=== PATIENT | female | born 1970 | race Two or more races ===

== ENCOUNTER 2017-02-05 14:56 | Emergency (ER) | payer SELFPAY ==
[2017-02-05 15:43] LABS: % IMMATURE GRANULYOCYTES 0.4 % (0.0-1.1); ABSOLUTE IMMATURE GRANULOCYTES 0.04 10^3/uL (0.00-0.10); ADD DIFF? NO; ADD MORPH? NO; ADD SCAN? NO; ATYPICAL LYMPHOCYTE FLAG 10 (0-99); FRAGMENT RBC FLAG 0 (0-99); HEMATOCRIT 43.5 % (38.0-47.0); HEMOGLOBIN 14.9 g/dL (12.6-16.3); LEFT SHIFT FLG 0 (0-99); LIPEMIA HEMOLYSIS FLAG 90 (0-99); MEAN CELL HEMOGLOBIN CONCENTR. 34.3 g/dL (32.4-36.7); MEAN CELL VOLUME 84.8 fL (81.5-99.8); PLATELET CLUMPS FLAG 0 (0-99); PLATELET COUNT 463 10^3/uL (150-400); RED BLOOD CELL COUNT 5.13 10^6/uL (4.18-5.33); RED CELL DISTRIBUTION WIDTH 12.4 % (11.5-15.2)
[2017-02-05 15:49] LABS: ANION GAP 18 mEq/L (8-16); CARBON DIOXIDE 21 mEq/l (22-31); CHLORIDE 100 mEq/L (97-110); CREATININE 0.7 mg/dL (0.6-1.0); GLOMERULAR FILTRATION RATE > 60; GLUCOSE 104 mg/dL (70-100); POTASSIUM 4.3 mEq/L (3.5-5.2); SODIUM 139 mEq/L (134-144)
--- NOTE | 2017-02-05 16:00 | EDPHY ---
H & P Time Seen by Provider: 02/05/17 15:43 HPI/ROS: CHIEF COMPLAINT: Right-sided abdominal pain HISTORY OF PRESENT ILLNESS: 46-year-old female presents with right-sided abdominal pain. Onset of epigastric burning and discomfort 2 weeks ago, similar to prior episodes of GERD. She took Mylanta with relief. She has been taking Nexium since then. However, she has developed a discomfort in the right side of her abdomen over the past week, which comes and goes. The discomfort is not clearly related to eating. Sometimes the pain is in the right upper quadrant and sometimes in the right lower quadrant. Rated 5/10 at its worst. No pain now. Eating normally. No fever, nausea, vomiting, diarrhea or constipation. REVIEW OF SYSTEMS: Constitutional: No fever, no chills Eyes: No visual changes ENT: No sore throat Respiratory: No cough, no shortness of breath Cardiac: No chest pain Genitourinary: No hematuria, no dysuria Musculoskeletal: No leg pain or swelling Skin: No rash Neurological: No headache [Psychiatric: No depression Past Medical/Surgical History: GERD Social History: No recent alcohol Smoking Status: Never smoked Physical Exam: General Appearance: Alert, pleasant Eyes: Pupils equal and round, no conjunctival pallor ENT, Mouth: Mucous membranes moist Neck: Normal inspection Respiratory: Lungs are clear to auscultation Cardiovascular: Regular rate and rhythm Gastrointestinal: Abdomen is soft and nontender Neurological: A&O, nonfocal, normal gait Skin: Warm and dry, no rash Extremities: Nontender, no pedal edema Psychiatric: Mood and affect normal Constitutional: Initial Vital Signs Temperature (C) 37.3 C 02/05/17 15:01 Heart Rate 105 H 02/05/17 15:01 Respiratory Rate 20 02/05/17 15:01 Blood Pressure 167/100 H 02/05/17 15:01 O2 Sat (%) 95 02/05/17 15:01 O2 Delivery Mode Room Air Allergies/Adverse Reactions: No Known Allergies Allergy (Unverified 02/05/17 15:00) Home Medications: Medication Instructions Recorded Nexium 02/05/17 Singulair 02/05/17 ZYRTEC 02/05/17 Medical Decision Making - Diagnostics Imaging Results: RUQ sono: fatty liver, o/w unremarkable Imaging: Discussed imaging studies w/ call out operator Radiologist ED Course/Re-evaluation: This pt presents with intermittent RUQ pain, possibly secondary to biliary colic /renal colic. No pain now and abd exam is normal. Will obtain labs/RUQ sono. Laboratory and ultrasound results discussed with the patient. No evidence of biliary colic, cholecystitis or hydronephrosis/kidney ston. Abdominal exam remained soft and nontender. She will follow up with GI. Differential Diagnosis: Differential diagnosis includes though it is not limited to appendicitis, cholecystitis, diverticulitis, pyelonephritis, bowel perforation, small bowel obstruction. - Data Points Laboratory Results: Laboratory Results 02/05/17 15:13 02/05/17 15:13 Departure - Departure Disposition: Home, Routine, Self-Care Clinical Impression: Abdominal pain Qualifiers: Abdominal location: right upper quadrant Qualified Code(s): R10.11 - Right upper quadrant pain Condition: Good Instructions: Abdominal Pain (ED) Referrals: Srinivas Gleason MD [Medical Doctor] - As per Instructions (Call to make an appointment. )
[2017-02-05 16:12] LABS: ALBUMIN 5.1 g/dL (3.5-5.0); BILIRUBIN,TOTAL 0.5 mg/dL (0.1-1.4); BILIRUBIN-CONJUGATED 0.4 mg/dL (0.0-0.5); BILIRUBIN-UNCONJUGATED 0.1 mg/dL (0.0-1.1); TOTAL PROTEIN 9.4 g/dL (6.3-8.2)
[2017-02-05 16:17] LABS: COLOR YELLOW; LEUKOCYTE ESTERASE,URINE NEGATIVE (NEGATIVE); NITRITE,URINE NEGATIVE (NEGATIVE)
[2017-02-05 16:25] LABS: MUCUS TRACE /lpf (NONE-1+); RBC,URINE 15-25 /hpf (0-3)
[2017-02-05 17:43] VITALS: BP 160/102; PULSE 68; RESP 19; TEMP 98.4; O2SAT 96
== END 2017-02-05 17:41 | disposition home or self-care (01) ==
DX: R10.11 Right upper quadrant pain (principal)

== ENCOUNTER → 2018-08-09 | Outpatient (CLI) | payer OTHER | LOC: MERGE 15:51 → FIMAGING 15:51 | PROVIDERS: ATTEND Family Medicine | DX: Z12.31 Encounter for screening mammogram for malignant neoplasm of breast (principal) ==